=== PATIENT | male | born 1955 | race Caucasian/White ===

== ENCOUNTER → 2018-11-28 | Outpatient (CLI) | payer BC | END | disposition home or self-care (01) | LOC: LABWHC1 10:09 | PROVIDERS: ATTEND Urology | DX: C61 Malignant neoplasm of prostate (principal) | CPT/HCPCS: 36415; 84153 ==

== ENCOUNTER → 2019-12-08 | Outpatient (CLI) | payer BC | END | disposition home or self-care (01) | LOC: LABWHC1 07:24 | PROVIDERS: ATTEND Urology | DX: C61 Malignant neoplasm of prostate (principal) | CPT/HCPCS: 36415; 84153 ==

== ENCOUNTER → 2021-01-02 | Outpatient (CLI) | payer BC | END | disposition home or self-care (01) | LOC: LABWHC1 07:50 | PROVIDERS: ATTEND Urology | DX: R97.20 Elevated prostate specific antigen [PSA] (principal) | CPT/HCPCS: 36415; 84153 ==

== ENCOUNTER 2021-10-20 04:02 | Inpatient (IN) | payer BC ==
[~2021-10-20 04:02] MED LIST: HEPARIN SOD,PORK IN 0.45% NACL PMX 25,000 UNIT/250 ML BAG IV ONE; IV FLUID CONTINUATION 500 ML IV ONE; LABETALOL 5 MG/ML VIAL MDV ONE; LORazepam 2 MG/ML INJ IV PRN; NITROGLYCERIN SL TABS 0.4 MG TAB SUBLINGUAL ONE; SODIUM CHLORIDE 0.9% 1,000 ML BAG ONE; SODIUM CHLORIDE 0.9% 500 ML 500 ML IV ONE
[2021-10-20] MEDS ORDERED: MIDAZOLAM 2 MG/2 ML VIAL IV ONE (04:45)
[2021-10-20] MEDS ORDERED: LIDOCAINE 1% INJ 10MG/ML (30 ML VIAL-PF) SQ ONE (04:47)
[2021-10-20] MEDS: fentaNYL (PF) 50 MCG/ML 2 ML AMP IV ONE ×2 (04:48→05:38)
[2021-10-20] MEDS ORDERED: TIROFIBAN BOLUS 12.5MG/250 ML BAG IV ONE (05:03)
[2021-10-20] MEDS ORDERED: TIROFIBAN 12.5MG-250ML NS 250 ML IV ONE (05:03)
[2021-10-20] MEDS ORDERED: LIDOCAINE 1% PF 10 MG/ML (5 ML AMP) IV ONE (05:09)
[2021-10-20] MEDS ORDERED: HYDROmorphone 0.5 MG/0.5 ML SYRINGE IVP ONE (05:13)
[2021-10-20] MEDS ORDERED: niCARdipine Syringe (1,000 mcg/10 mL) INTRACORON ONE (05:17)
[2021-10-20] MEDS ORDERED: IOPAMIDOL-370 100ML BTL INJ ONE ×3 (05:18→05:40)
[2021-10-20] MEDS ORDERED: CLOPIDOGREL 75 MG TAB PO ONE (05:27)
[2021-10-20] MEDS ORDERED: NITROGLYCERIN 1000MCG/10ML SYRINGE INTRACORON ONE (05:27)
[2021-10-20] MEDS ORDERED: ATORVASTATIN 80 MG TAB PO STA (06:20)
[2021-10-20] MEDS ORDERED: ONDANSETRON 4 MG/2 ML VIAL IVP PRN ×2 (06:20→07:13)
[2021-10-20] MEDS: SODIUM CHLORIDE 0.9% 1,000 ML IV SCH ×2 (06:43→20:40)
[2021-10-20] MEDS: TIROFIBAN 12.5MG-250ML NS 250 ML IV SCH ×2 (06:44→16:44)
[2021-10-20 06:49] LABS: Basophils # (A) 0.1 k/uL (0-0.2); Basophils % (A) 2 %; Eosinophils # (A) 0.2 k/uL (0-0.7); Eosinophils % (A) 3 %; HCT 45.7 % (39.0-53.0); HGB 15.4 gm/dL (13.0-17.5); Lymphocytes # (A) 2.4 k/uL (1.0-4.8); Lymphocytes % (A) 35 %; MCH 29.1 pg (25.0-35.0); MCHC 33.7 g/dL (31.0-37.0); MCV 86.5 fL (80.0-100.0); Mean Platelet Volume 7.7; Monocytes # (A) 0.3 k/uL (0-1.0); Monocytes % (A) 5 %; Neutrophils # (A) 3.5 k/uL (1.3-7.7); Neutrophils % (A) 53 %; Platelet Count 254 k/uL (150-450); RBC 5.28 m/uL (4.30-5.90); RDW 12.5 % (11.5-15.5); WBC 6.7 k/uL (3.8-10.6)
[2021-10-20 06:50] LABS: INR 0.9 (<1.2); Partial Thromboplastin Time 21.9 sec (22.0-30.0); Prothrombin Time 9.7 sec (9.0-12.0)
[2021-10-20 06:51] LABS: Creatine Kinase MB 3.7 ng/mL (0.0-2.4)
[2021-10-20 06:53] LABS: Troponin I 0.083 ng/mL (0.000-0.034)
[2021-10-20 06:55] LABS: Albumin 4.5 g/dL (3.5-5.0); Magnesium 2.1 mg/dL (1.6-2.3); Phosphorus 3.1 mg/dL (2.5-4.5); Potassium 4.1 mmol/L (3.5-5.1); Total Bilirubin 0.3 mg/dL (0.2-1.3); Total Protein 7.6 g/dL (6.3-8.2)
[2021-10-20] MEDS ORDERED: LORazepam 2 MG/ML INJ IV PRN (07:12)
--- NOTE | 2021-10-20 07:25 | XR ---
EXAMINATION TYPE: XR chest 1V DATE OF EXAM: 10/20/2021 CLINICAL HISTORY: Chest pain. Abnormal EKG. TECHNIQUE: Single AP portable frontal upright view of the chest is obtained. COMPARISON: None FINDINGS: There is some chronic parenchymal changes bilaterally without suspicious focal air space o pacity, pleural effusion, or pneumothorax seen. The cardiac silhouette size is upper limits of jarred l. The osseous structures are intact. Overlying EKG leads are present. IMPRESSION: No acute process.
--- NOTE | 2021-10-20 07:26 | XR ---
EXAMINATION TYPE: XR chest 1V portable DATE OF EXAM: 10/20/2021 CLINICAL HISTORY: Chest pain. Post coronary stent placement.. TECHNIQUE: Single AP portable semiupright view of the chest is obtained. COMPARISON: Chest x-ray from earlier today FINDINGS: There is new coronary stent in the left circumflex distribution along superior left heart border. Persistent chronic parenchymal changes without suspicious new focal airspace opacity, pleural effusion, or pneumothorax seen bilaterally. Cardiac silhouette size stable and upper limits of jarred l. Osseous structures are intact. IMPRESSION: New coronary stent. No new suspicious acute pulmonary process.
[2021-10-20] MEDS: METOPROLOL TARTRATE 12.5 MG TAB PO SCH ×2 (08:45→20:40)
[2021-10-20] MEDS ORDERED: LOSARTAN 25 MG TAB PO STA (10:42)
--- NOTE | 2021-10-20 11:40 | CONS ---
CONSULTATION Mr. Trammell is a 66-year-old gentleman with a history of prostate cancer about 10 years ago. He has a strong family history of premature CAD. He has no other risk factors, does not take any medications. Over the weekend he had two episodes of chest tightness and pressure randomly. He kind of dismissed them, and this morning he had severe pain starting at about 3:00 in the morning. He came into the hospital, was found to have a significant ST elevation involving the anterior leads, and he was promptly taken to the cardiac electroplating laborer. I evaluated him in the lab. He was having a pain of 8/10, was hemodynamically stable. Physical exam revealed a blood pressure of 150/70. Pulse rate was about 86 per minute. There was no JVD. No carotid bruit. S1-S2 were heard normally. No significant rub, murmur or gallop. Lungs were clear. Abdomen was soft. Lower extremities revealed diminished pulses. Radial pulses were somewhat weak. Central nervous system grossly within normal limits. IMPRESSION: 1. Acute anterior ST-elevation myocardial infarction. 2. History of prostate cancer 10 years ago. 3. Strong family history of premature coronary artery disease. RECOMMENDATIONS: I recommended cardiac catheterization and PCI and proceeded to perform this in the same setting expeditiously. MMODL / IJN: [id number] /
--- NOTE | 2021-10-20 11:40 | CC ---
CARDIAC CATHETERIZATION REPORT DATE OF SERVICE: 10/20/2021 PROCEDURE: 1. Left heart catheterization and coronary angiography. 2. Percutaneous transluminal coronary angioplasty and stenting of totally occluded mid left anterior descending artery in the setting of an anterior ST-elevation myocardial infarction with reperfusion accomplished in 64 minutes. PERFORMED BY: Dr. Carole Najera. Moderate conscious sedation time was 51 minutes. CLINICAL INFORMATION: Mr. Quan Trammell is a 66-year-old gentleman with a strong family history of CAD, history of prostate carcinoma 10 years ago. He has NO ALLERGIES and is on no medications. He came into the hospital with chest pain and had anterior ST elevation, was promptly taken to the biology laboratory assistant. Risks, benefits, options, rationale regarding cardiac cath and PCI were explained. The patient understood all details and wished to proceed with the procedure. PROCEDURE NOTE: I tried to get access from the right radial, but the radial pulses were poor. I switched over to the femoral approach. Under strict aseptic precautions and local anesthesia, a 6-Honduran introducer was placed in the right femoral artery. I started with a JL4 guide catheter and cannulated the left coronary artery and noted that the LAD was totally occluded in the mid portion after a diagonal branch. I went ahead and performed intervention of the LAD and then performed coronary angiography of the right system and also checked LV pressures. Following the procedure, the sheath was taken out and Angio-Seal device used to secure hemostasis and he was sent to the room in stable condition. Excellent angiographic result was achieved. CARDIAC CATHETERIZATION FINDINGS: The left ventricular end-diastolic pressure was about 16 mmHg without any gradient across the aortic valve. CORONARY ANGIOGRAPHY FINDINGS: RIGHT CORONARY ARTERY: This is a large dominant vessel. No significant disease. Distally bifurcates into large PDA and PLV, both of which have minor irregularities. No significant disease. LEFT MAIN CORONARY ARTERY: Short, patent, disease-free vessel that bifurcates into LAD and circumflex. LEFT ANTERIOR DESCENDING CORONARY ARTERY: This is totally occluded after diagonal branch and is seen as a stump without any antegrade flow and is the culprit lesion. LEFT POSTERIOR CIRCUMFLEX CORONARY ARTERY: This is a nondominant vessel, large in caliber and distribution. Supplies a sizable amount of myocardium. No significant disease. LEFT VENTRICULOGRAM: Left ventriculogram was not performed. FINAL IMPRESSION: This patient presented with acute anterior ST-elevation NV, has a total occlusion of LAD, which is the culprit vessel. Dominant RCA and nondominant circumflex are free of significant disease. Filling pressures are mildly elevated and there is no gradient across aortic valve. RECOMMENDATIONS: I recommended PCI of LAD that was performed expeditiously. PERCUTANEOUS CORONARY INTERVENTION PROCEDURE DETAILS: I used a JL4 guide catheter to cannulate the left coronary artery and a run-through wire to cross the lesion. I used a 12 mm long 3.0 caliber Trek balloon to pre-dilate the lesion. I then deployed a 23 mm long 3.5 caliber Xience stent at 13 atmospheres. I noted that there was haziness distal to the stented segment. Distal to the a 23 mm long stent, I deployed another 12 mm 3.5 caliber Xience stent at 13 atmospheres. Excellent angiographic result was achieved. Patient had total resolution of chest pain. However, the ST-segment elevation persisted. He has had substantial thrombus burden. I also started him on an Aggrastat bolus and drip. He received 180 mg of Brilinta. ACT was 235. Excellent angiographic result without complication was achieved. The sheath was taken out and Angio-Seal device used to secure hemostasis and he was sent to the room in stable condition. Results were discussed with the patient and his . MMODL / IJN: [id number] /
--- NOTE | 2021-10-20 11:59 | P.HPIM ---
History of Present Illness H&P Date: 10/20/21 Chief Complaint: Chest pain Patient is a 66-year-old male with a known history of prostate cancer status post surgery, patient is to smoking, daily alcohol use 16-18 beers per week., Presents to ER with complaints of chest pain. Patient states that he was moving lawn on Wednesday and suddenly started having left retrosternal chest pain. He took rest for about 10 minutes and pain resolved. And again on Wednesday patient started going for a bike ride and the lower chest pain again and he could not go to bike ride at the time, rather he went for a walk..again around 3-4 AM last night he started having chest pain which made him come to ER. Patient denied any radiation of the pain. No sensation nausea vomiting or dizziness or lightheadedness. Minimal shortness of breath. Denied any leg swelling. No exertional dyspnea recently. Patient was found have ST elevated [place] with ST-T wave changes in the anterior leads and was immediately cardiac catheterization. Laboratory data showed WBC 6.7 hemoglobin 15.4 and platelets 254 Sodium 137 potassium 4.1 (bicarb is 20 BUN 20 and creatinine 1.14 and blood sugar is 162. Troponin 0.083, 190, 212 ProBNP is 69 Review of Systems Constitutional: Patient denies any fever or chills . No generalized weakness or weight loss. Abdomen: Patient denied nausea vomiting and diarrhea and abdominal pain. Cardiovascular: Patient did have chest pain. No short of breath no palpitations . Respiratory: patient denied any cough is from production. No shortness of breath Neurologic: Patient denied any numbness or tingling headache. Musculoskeletal: Patient denies any complaints of joint swelling or deformity. Skin: Negative Psychiatric: Negative Endocrine: No heat or cold intolerance. No recent weight gain. Genitourinary: No dysuria or hematuria. All other 14 point ROS negative except the above Past Medical History Past Medical History: Cancer Additional Past Medical History / Comment(s): prostate CA History of Any Multi-Drug Resistant Organisms: None Reported Past Surgical History: Prostate Surgery Past Anesthesia/Blood Transfusion Reactions: No Reported Reaction Past Psychological History: No Psychological Hx Reported Smoking Status: Former smoker - Past Family History Father Family Medical History: Unable to Obtain Mother Family Medical History: Unable to Obtain Medications and Allergies Home Medications Medication Instructions Recorded Confirmed Type No Known Home Medications 10/20/21 10/20/21 History Allergies Allergy/AdvReac Type Severity Reaction Status Date / Time No Known Allergies Allergy Verified 10/20/21 07:34 Physical Exam Vitals: Vital Signs Temp Pulse Resp BP Pulse Ox 10/20/21 09:00 70 14 139/99 95 10/20/21 08:00 98.5 F 67 21 144/112 95 10/20/21 07:00 68 14 94 L 10/20/21 06:46 63 22 139/91 93 L Intake and Output 10/19/21 10/20/21 10/20/21 22:59 06:59 14:59 Intake Total 448.5 225 Output Total 0 475 Balance 448.5 -250 Intake: IV 448.5 225 Sodium Chloride 0.9% 1, 75 225 000 ml @ 75 mls/hr IV . [id number] [facility] Rx#:[id number] Output: Urine 0 475 Other: Voiding Method Urinal Weight 97.4 kg PHYSICAL EXAMINATION: Patient is lying in the bed comfortably, no acute distress, awake alert and oriented.. HEENT: Normocephalic. Neck is supple. Pupils reactive. Nostrils clear. Oral cavity is moist. Neck reveals no JVD, carotid bruits, or thyromegaly. CHEST EXAMINATION: Trachea is central. Symmetrical expansion. Lung vasquez clear to auscultation and percussion. CARDIAC: Normal S1, S2 with no gallops. No murmurs ABDOMEN: Soft. Bowel sounds normal. No organomegaly. No abdominal bruits. Extremities: reveal no edema. No clubbing or cyanosis Neurologically awake, alert, oriented x3 with well-coordinated movements. No focal deficits noted Skin: No rash or skin lesions. Psychiatric: Coperative. Nonsuicidal Musculoskeletal: No joint swelling or deformity. Normal range of motion. Results CBC & Chem 7: 10/20/21 04:10 10/20/21 04:10 Labs: Abnormal Lab Results - Last 24 Hours (Table) 10/20/21 10/20/21 10/20/21 Range/Units 04:10 04:10 04:10 APTT 21.9 L (22.0-30.0) sec BUN 23 H (9-20) mg/dL Glucose 162 H (74-99) mg/dL ALT 57 H (4-49) U/L CK-MB (CK-2) 3.7 H (0.0-2.4) ng/mL Troponin I 0.083 H* (0.000-0.034) ng/mL 10/20/21 Range/Units 07:43 APTT (22.0-30.0) sec BUN (9-20) mg/dL Glucose (74-99) mg/dL ALT (4-49) U/L CK-MB (CK-2) (0.0-2.4) ng/mL Troponin I 190.000 H* (0.000-0.034) ng/mL Thrombosis Risk Factor Assmnt - DVT/VTE Prophylaxis DVT/VTE Prophylaxis: Pharmacologic Prophylaxis ordered - Choose All That Apply Any of the Below Risk Factors Present?: Yes Each Factor Represents 1 point: Acute [place] Other Risk Factors: Yes Each Risk Factor Represents 2 Points: Age 61-74 years Other congenital or acquired thrombophilia - If yes, enter type in comment: No Thrombosis Risk Factor Assessment Total Risk Factor Score: 3 Thrombosis Risk Factor Assessment Level: Moderate Risk Assessment and Plan Assessment: Acute ST elevated [place] involving the anterior wall History of prostate cancer status post surgery 10 years ago Family history of coronary artery disease in his father Previous history of smoking Daily alcohol use. Does drink 16-18 beats per week. Hypertension DVT prophylaxis Plan: Patient is status post cardiac catheterization and stent placement to LAD. Continue with telemetry monitoring. Continue with aspirin, Plavix and statins and metoprolol. Also started on losartan. Follow-up echocardiogram. C ardiology is on board. Continue to follow closely. Time with Patient: Greater than 30
[2021-10-20] MEDS: amLODIPine 5 MG TAB PO SCH (16:07)
[2021-10-20] MEDS: ATORVASTATIN 80 MG TAB PO SCH (20:40)
[2021-10-20] MEDS: LOSARTAN 25 MG TAB PO SCH (20:40)
[2021-10-21 07:47] LABS: African American GFR (CKD) >90 (>60 ml/min/1.73 sqM); Anion Gap 8 mmol/L; Blood Urea Nitrogen 11 mg/dL (9-20); Calcium 8.6 mg/dL (8.4-10.2); Carbon Dioxide 25 mmol/L (22-30); Chloride 105 mmol/L (98-107); Glucose 144 mg/dL (74-99); Non-African American GFR(CKD) 89 (>60 ml/min/1.73 sqM); Potassium 4.1 mmol/L (3.5-5.1); Sodium 138 mmol/L (137-145)
[2021-10-21] MEDS: CLOPIDOGREL 75 MG TAB PO SCH (07:58)
[2021-10-21] MEDS: ASPIRIN 81 MG PO SCH (07:58)
[2021-10-21] MEDS: METOPROLOL TARTRATE 12.5 MG TAB PO SCH ×2 (07:58→20:04)
[2021-10-21] MEDS: amLODIPine 5 MG TAB PO SCH (07:58)
--- NOTE | 2021-10-21 12:06 | P.PN ---
Subjective Progress Note Date: 10/21/21 This is 66-year-old gentleman was admitted with myocardial infarction and had stent placement. Patient has been stable since yesterday. His blood pressure was running high. He was put on amlodipine 5 mg along with Cozaar 25 and metoprolol. His blood pressure is 130/80 to 90. Today his heart rate is co ntrolled, denies any chest pain, shortness of breath, dizziness or syncope. He groin remains soft. Lungs are clear. Heart is regular. No JVD or peripheral edema. He'll continue current medical therapy. He had an echocardiogram and we are waiting for the report. He will be transferred to telemetry unit and increase activity as tolerated. Further recommendations depend upon clinical course Objective - Vital Signs Vital signs: Vital Signs Temp 98.7 F 10/21/21 07:56 Pulse 69 10/21/21 10:00 Resp 28 H 10/21/21 10:00 BP 130/88 10/21/21 10:00 Pulse Ox 94 L 10/21/21 10:00 FiO2 Intake & Output 10/20/21 10/21/21 10/21/21 18:59 06:59 18:59 Intake Total 900 900 150 Output Total 475 Balance 425 900 150 Weight 96.6 kg Intake: IV 900 900 150 Sodium Chloride 0.9% 1, 900 900 150 000 ml @ 75 mls/hr IV . [id number] [facility] Rx#:[id number] Output: Urine 475 Other: Voiding Method Urinal Urinal Urinal # Voids 1 1 1 - Exam GENERAL EXAM: Patient is alert and oriented and doesn't appear to be in any acute distress HEENT: Normocephalic. Normal reaction of pupils, equal size, normal range of extraocular motion. No erythema or exudates in the throat. NECK: No masses, no nuchal rigidity. CHEST: No chest wall deformity. LUNGS: Equal air entry with no crackles or wheeze. HEART: S1 and S2 normal with no audible mumurs or gallops. Regular rhythm, femorals equal on both sides.. ABDOMEN: No hepatosplenomegaly, normal bowel sounds, no guarding or rigidity. SKIN: No rashes CENTRAL NERVOUS SYSTEM: No focal deficits. EXTREMITIES: No cyanosis, clubbing or edema. - Labs CBC & Chem 7: 10/20/21 04:10 10/21/21 07:06 Labs: Abnormal Lab Results - Last 24 Hours (Table) 10/21/21 Range/Units 07:06 Glucose 144 H (74-99) mg/dL Assessment and Plan (1) Essential hypertension Current Visit: Yes Status: Acute Code(s): I10 - ESSENTIAL (PRIMARY) HYPERTENSION SNOMED Code(s): 53575916 (2) STEMI (ST elevation myocardial infarction) Current Visit: Yes Status: Acute Code(s): I21.3 - ST ELEVATION (STEMI) MYOCARDIAL INFARCTION OF [facility] SITE SNOMED Code(s): 87400967 Plan: Status post myocardial infarctions, stent placement. His troponin went up to 120. Patient is clinically stable without any arrhythmia or evidence of CHF. Echo findings are pending. Patient will be transferred to telemetry unit. Increase activity as tolerated
--- NOTE | 2021-10-21 12:27 | P.PN ---
Subjective Patient is a 66-year-old male with a known history of prostate cancer status post surgery, patient is to smoking, daily alcohol use 16-18 beers per week., Presents to ER with complaints of chest pain. Patient states that he was moving lawn on Wednesday and suddenly started having left retrosternal chest pain. He took rest for about 10 minutes and pain resolved. And again on Wednesday patient started going for a bike ride and the lower chest pain again and he could not go to bike ride at the time, rather he went for a walk..again around 3-4 AM last night he started having chest pain which made him come to ER. Patient denied any radiation of the pain. No sensation nausea vomiting or dizziness or lightheadedness. Minimal shortness of breath. Denied any leg swelling. No exertional dyspnea recently. Patient was found have ST elevated [place] with ST-T wave changes in the anterior leads and was immediately cardiac catheterization. Laboratory data showed WBC 6.7 hemoglobin 15.4 and platelets 254 Sodium 137 potassium 4.1 (bicarb is 20 BUN 20 and creatinine 1.14 and blood sugar is 162. Troponin 0.083, 190, 212 ProBNP is 69 10/21/2021 patient clinically doing well, he was seen in the ICU room 254, his denied any chest pain or dyspnea. He is status post stent placement to the LAD. Echocardiogram is done today and results pending. Hemodynamically stable, he is slightly tachypneic , however is not hypoxic and saturation 94-95% room air. Chest x-ray from yesterday showed no acute Pulmonary process. He has a new coronary stent. He remains on gentle hydration. He was started on aspirin and Plavix and statin. Objective - Vital Signs Vital signs: Vital Signs Temp 98.7 F 10/21/21 07:56 Pulse 69 10/21/21 10:00 Resp 28 H 10/21/21 10:00 BP 130/88 10/21/21 10:00 Pulse Ox 94 L 10/21/21 10:00 FiO2 Intake & Output 10/20/21 10/21/21 10/21/21 18:59 06:59 18:59 Intake Total 900 900 150 Output Total 475 Balance 425 900 150 Weight 96.6 kg Intake: IV 900 900 150 Sodium Chloride 0.9% 1, 900 900 150 000 ml @ 75 mls/hr IV . [id number] [facility] Rx#:[id number] Output: Urine 475 Other: Voiding Method Urinal Urinal Urinal # Voids 1 1 1 - Exam GENERAL: The patient is alert and oriented x3, not in any acute distress. Well developed, well nourished. HEENT: Pupils are round and equally reacting to light. EOMI. No scleral icterus. No conjunctival pallor. Normocephalic, atraumatic. No pharyngeal erythema. No thyromegaly. CARDIOVASCULAR: S1 and S2 present. No murmurs, rubs, or gallops. PULMONARY: Chest is clear to auscultation, no wheezing or crackles. ABDOMEN: Soft, nontender, nondistended, normoactive bowel sounds. No palpable organomegaly. MUSCULOSKELETAL: No joint swelling or deformity. EXTREMITIES: No cyanosis, clubbing, or pedal edema. NEUROLOGICAL: Gross neurological examination did not reveal any focal deficits. SKIN: No rashes. no petechiae. - Labs CBC & Chem 7: 10/20/21 04:10 10/21/21 07:06 Labs: Abnormal Lab Results - Last 24 Hours (Table) 10/21/21 Range/Units 07:06 Glucose 144 H (74-99) mg/dL Assessment and Plan Assessment: Acute ST elevated [place] involving the anterior wall History of prostate cancer status post surgery 10 years ago Family history of coronary artery disease in his father Previous history of smoking Daily alcohol use. Does drink 16-18 beats per week. Hypertension Plan: This is a pleasant 66 years old male who presents with STEMI status post PCI to LAD. Continue with aspirin and Plavix Cardiology consult is following the case. Follow-up echocardiogram. Labs and medication were reviewed.. Continue same treatment. Continue with symptomatic treatment. Resume home medication. Monitor lytes and vitals. DVT and GI prophylaxis. Further recommendationsas per clinical course of the patient DVT prophylaxis: Subcutaneous heparin GI Prophylaxis: Pepcid
--- NOTE | 2021-10-21 19:26 | CA ---
Transthoracic Echo Report Name: Quan Trammell Age: 66 Gender: M : 1955 Exam Date: 10/21/2021 08:57 Exam Location: [place] [facility] Ht (in): 70 Wt (lb): 214 Ordering Physician: Fouzia Najera MD ([id number]) Attending/Referring Phys: Railroad Hand Pina Rivas RDCS Procedure CPT: Indications: heart cath with stents Cardiac Hx: Technical Quality: Technically difficult study Contrast 1: Lumason Total Dose (mL): 3 Contrast 2: Total Dose (mL): MEASUREMENTS (Male / Female) Normal Values 2D ECHO LV Diastolic Diameter PLAX 4.0 cm 4.2 - 5.9 / 3.9 - 5.3 cm LV Systolic Diameter PLAX 2.3 cm IVS Diastolic Thickness 1.6 cm 0.6 - 1.0 / 0.6 - 0.9 cm LVPW Diastolic Thickness 1.5 cm 0.6 - 1.0 / 0.6 - 0.9 cm LV Relative Wall Thickness 0.8 RV Internal Dim ED PLAX 3.8 cm LA Volume 76.3 cm??? 18 - 58 / 22 - 52 cm??? M-MODE Aortic Root Diameter MM 3.4 cm LA Systolic Diameter MM 4.4 cm LA Ao Ratio MM 1.3 AV Cusp Separation MM 1.9 cm DOPPLER AV Peak Velocity 159.9 cm/s AV Peak Gradient 10.2 mmHg LVOT Peak Velocity 138.3 cm/s LVOT Peak Gradient 7.7 mmHg MV Area PHT 4.3 cm??? Mitral E Point Velocity 90.0 cm/s Mitral A Point Velocity 123.1 cm/s Mitral E to A Ratio 0.7 MV Deceleration Time 175.5 ms MV E' Velocity 6.0 cm/s Mitral E to MV E' Ratio 15.0 TR Peak Velocity 315.0 cm/s TR Peak Gradient 39.7 mmHg FINDINGS Left Ventricle Left ventricular cavity size normal. Moderately increased left ventricular wall thickness. Left ventricular ejection fraction is estimated at 40 %. [place] hypokinetic. Apical septal, apical inferior and apical anterior nicholas hypokinetic. Right Ventricle Mild Right ventricular dilatation. Mild pulmonary hypertension. Right Atrium Normal right atrial size. Left Atrium Moderately increased left atrial volume. No evidence for an atrial septal defect. Mitral Valve [id number] mitral regurgitation. Aortic Valve Trileaflet aortic valve. No aortic valve stenosis or regurgitation. Tricuspid Valve Mild tricuspid regurgitation. Pulmonic Valve Trace pulmonic regurgitation. Pericardium No pericardial effusion. Aorta Normal size aortic root and proximal ascending aorta. CONCLUSIONS Reduced LV systolic function with severe septal hypokinesis Apical hypokinesis Left ventricular ejection fraction 40 % Previewed by: Dr. Willi Baird MD (Electronically Signed) Final Date: 21 Oct 2021 19:25
[2021-10-21] MEDS: LOSARTAN 25 MG TAB PO SCH (20:05)
[2021-10-21] MEDS: HEPARIN SODIUM,PORCINE/PF 5,000 UNIT/0.5 ML SYRINGE SQ SCH (20:05)
[2021-10-21] MEDS: FAMOTIDINE 20 MG/2 ML VIAL IV SCH (20:05)
[2021-10-21] MEDS: ATORVASTATIN 80 MG TAB PO SCH (20:06)
[2021-10-22] MEDS: HEPARIN SODIUM,PORCINE/PF 5,000 UNIT/0.5 ML SYRINGE SQ SCH (08:02)
[2021-10-22] MEDS: FAMOTIDINE 20 MG/2 ML VIAL IV SCH (08:02)
[2021-10-22] MEDS: amLODIPine 5 MG TAB PO SCH (08:03)
[2021-10-22] MEDS: CLOPIDOGREL 75 MG TAB PO SCH (08:03)
[2021-10-22] MEDS: ASPIRIN 81 MG PO SCH (08:03)
[2021-10-22] MEDS: METOPROLOL TARTRATE 12.5 MG TAB PO SCH (08:03)
[2021-10-22 09:19] VITALS: RESP 14
--- NOTE | 2021-10-22 10:06 | P.PN ---
Subjective Progress Note Date: 10/22/21 This is 66-year-old gentleman was admitted with myocardial infarction and had stent placement. Patient has been stable since yesterday. His blood pressure was running high. He was put on amlodipine 5 mg along with Cozaar 25 and metoprolol. His blood pressure is 130/80 to 90. Today his heart rate is co ntrolled, denies any chest pain, shortness of breath, dizziness or syncope. He groin remains soft. Lungs are clear. Heart is regular. No JVD or peripheral edema. He'll continue current medical therapy. He had an echocardiogram and we are waiting for the report. He will be transferred to telemetry unit and increase activity as tolerated. Further recommendations depend upon clinical course. 10/22/2021: This patient is admitted with anterior wall myocardial infarction and had stent placement of the LAD. However, patient did not have resolution of the ST segments. His echo Cardigan showed an ejection fraction about 40% with anteroapical hypokinesia. No significant valvular abnormalities are noted. Patient is clinically stable. No complaints of any chest pain or shortness of breath. No arrhythmias. Lungs are clear. Heart is regular. No JVD. Patient seemed to be clinically stable and eager to wants to go home. Continue current medical therapy including dual antiplatelet agents lipid-lowering agents along with beta adrián, MICHELLE inhibitor. Follow-up with Dr. PAOLA Najera in one week Objective - Vital Signs Vital signs: Vital Signs Temp 98.1 F 10/22/21 08:00 Pulse 76 10/22/21 08:00 Resp 14 10/22/21 08:00 BP 112/67 10/22/21 08:00 Pulse Ox 95 10/22/21 08:00 FiO2 Intake & Output 10/21/21 10/22/21 10/22/21 18:59 06:59 18:59 Intake Total 150 Balance 150 Weight 96.8 kg Intake: IV 150 Sodium Chloride 0.9% 1, 150 000 ml @ 75 mls/hr IV . [id number] FORMERLY [facility], 1928–1983 Rx#:[id number] Other: Voiding Method Urinal Toilet Toilet # Voids 1 1 - Exam GENERAL EXAM: Patient is alert and oriented and doesn't appear to be in any acute distress HEENT: Normocephalic. Normal reaction of pupils, equal size, normal range of extraocular motion. No erythema or exudates in the throat. NECK: No masses, no nuchal rigidity. CHEST: No chest wall deformity. LUNGS: Equal air entry with no crackles or wheeze. HEART: S1 and S2 normal with no audible mumurs or gallops. Regular rhythm, femorals equal on both sides.. ABDOMEN: No hepatosplenomegaly, normal bowel sounds, no guarding or rigidity. SKIN: No rashes CENTRAL NERVOUS SYSTEM: No focal deficits. EXTREMITIES: No cyanosis, clubbing or edema. - Labs CBC & Chem 7: 10/20/21 04:10 10/21/21 07:06 Assessment and Plan (1) Essential hypertension Current Visit: Yes Status: Acute Code(s): I10 - ESSENTIAL (PRIMARY) HYPERTENSION SNOMED Code(s): 47809138 (2) STEMI (ST elevation myocardial infarction) Current Visit: Yes Status: Acute Code(s): I21.3 - ST ELEVATION (STEMI) MYOCARDIAL INFARCTION OF [facility] SITE SNOMED Code(s): 00775141 (3) Ischemic cardiomyopathy Current Visit: Yes Status: Acute Code(s): I25.5 - ISCHEMIC CARDIOMYOPATHY SNOMED Code(s): 928480377 Plan: Patient is clinically stable. Echo Cardigan showed an ejection fraction of 40%. Patient is free of angina or CHF. No arrhythmias noted. Tolerating activity and eager to go home. Patient will have follow-up with Dr. PAOLA Najera
[2021-10-22 12:22] VITALS: BP 118/90; PULSE 75; TEMP 98.3
--- NOTE | 2021-10-23 00:22 | P.DS ---
Providers Date of admission: 10/20/21 04:03 Attending physician: Harley Denise Consults: 10/20/21 04:00 Consult Physician Routine Consulting Provider: Josafat Li Consult Reason/Comments: STEMI Do you want consulting provider notified?: Already Contacted Primary care physician: Stated None Hospital Course: Diagnoses: cute ST elevated OH involving the anterior wall History of prostate cancer status post surgery 10 years ago Family history of coronary artery disease in his father Previous history of smoking Daily alcohol use. Does drink 16-18 beats per week. Hypertension Hospital course: Patient is a 66-year-old male with a known history of prostate cancer status post surgery, patient is to smoking, daily alcohol use 16-18 beers per week., Presents to ER with complaints of chest pain. Patient states that he was moving lawn on Wednesday and suddenly started having left retrosternal chest pain. Patient found to have STEMI, he underwent PCI to LAD by staff nurse midwife. Patient was started on metoprolol, Plavix and aspirin and the importance of aggressive therapy explained for him. On the day of discharge he was fully awake and oriented and asymptomatic. Denies chest pain or dyspnea. No change in urine or bowel habits. No fever. Patient was eager to go home today. Patient was cleared for discharge by Windows Migration Technician. Problems and management plan were discussed with the patient and he verbalized understanding and acceptance Patient was found stable and can be discharged home however he needs follow-up as an outpatient. Patient was instructed to follow up with PCP within one week and patient agrees Patient was instructed to call his insurance provider to find PCP in one week and call and make appointment and he agrees Patient was informed to follow up with his staff nurse midwife Dr. Li in one week and he agrees. Physical exam Gen: patient is a AAOx3, no distress CVS: S1-S2, RRR, no murmur Lungs: B/L CTA, no wheezing Abdomen: soft, no distention, no tenderness, positive bowel sounds Extremity: no leg edema or induration Time spent more than 35 minutes Patient Condition at Discharge: Good Plan - Discharge Summary Discharge Rx Participant: No New Discharge Prescriptions: New Aspirin 81 mg PO DAILY #30 tab Losartan [Cozaar] 25 mg PO HS #30 tab Atorvastatin [Lipitor] 80 mg PO HS #30 tab Famotidine [Pepcid] 20 mg PO DAILY 7 Days #7 tablet Metoprolol Tartrate [Lopressor] 12.5 mg PO BID #60 tab amLODIPine [Norvasc] 5 mg PO DAILY #30 tab Clopidogrel [Plavix] 75 mg PO DAILY #30 tab Discharge Medication List Aspirin 81 mg PO DAILY #30 tab 10/22/21 [Rx] Atorvastatin [Lipitor] 80 mg PO HS #30 tab 10/22/21 [Rx] Clopidogrel [Plavix] 75 mg PO DAILY #30 tab 10/22/21 [Rx] Famotidine [Pepcid] 20 mg PO DAILY 7 Days #7 tablet 10/22/21 [Rx] Losartan [Cozaar] 25 mg PO HS #30 tab 10/22/21 [Rx] Metoprolol Tartrate [Lopressor] 12.5 mg PO BID #60 tab 10/22/21 [Rx] amLODIPine [Norvasc] 5 mg PO DAILY #30 tab 10/22/21 [Rx] Follow up Appointment(s)/Referral(s): Josafat Li MD [STAFF PHYSICIAN] - 1 Week ([facility] will call patient to set up an appointment for 1 week ) Patient Instructions/Handouts: Heart Attack (DC) Activity/Diet/Wound Care/Special Instructions: Heart healthy diet Activity is restricted until you see your doctor We recommend to call your health insurance provider to find nearby primary care doctor, please call to make an appointment within 1 week Discharge Disposition: HOME SELF-CARE
== END 2021-10-22 12:21 | disposition home or self-care (01) | DRG 247 ==
LOC: EC 04:02 → 2SICU 04:03
PROVIDERS: ADMIT Hospitalist; ATTEND Hospitalist
PROC: B2111ZZ Fluoroscopy of Multiple Coronary Arteries using Low Osmolar Contrast (ICD-10-PCS; 2021-10-20)
PROC: 027034Z Dilation of Coronary Artery, One Artery with Drug-eluting Intraluminal Device, Percutaneous Approach (ICD-10-PCS; principal; 2021-10-20 04:30)
PROC: 4A023N7 Measurement of Cardiac Sampling and Pressure, Left Heart, Percutaneous Approach (ICD-10-PCS; 2021-10-20 04:30)
DX: I21.09 ST elevation (STEMI) myocardial infarction involving other coronary artery of anterior wall (principal); I25.10 Atherosclerotic heart disease of native coronary artery without angina pectoris; I25.5 Ischemic cardiomyopathy; I10 Essential (primary) hypertension; I25.2 Old myocardial infarction; Z85.46 Personal history of malignant neoplasm of prostate; Z87.891 Personal history of nicotine dependence; Z98.890 Other specified postprocedural states; Z82.49 Family history of ischemic heart disease and other diseases of the circulatory system
CPT/HCPCS: 71045; 80048; 80053; 82550; 82553; 83690; 83735; 83880; 84100; 84484; 85025; 85610; 85730; 93306; 93458; 96365; 96366; 96375; 96376; 99285

== ENCOUNTER → 2022-01-08 | Outpatient (CLI) | payer BC | END | disposition home or self-care (01) | LOC: LABWHC1 08:14 | PROVIDERS: ATTEND Urology | DX: C61 Malignant neoplasm of prostate (principal) | CPT/HCPCS: 36415; 84153 ==

== ENCOUNTER → 2022-12-31 | Outpatient (CLI) | payer MEDICARE | END | disposition home or self-care (01) | LOC: LABWHC1 12:36 | PROVIDERS: ATTEND Urology | DX: C61 Malignant neoplasm of prostate (principal) | CPT/HCPCS: 36415; 84153 ==

== ENCOUNTER → 2023-08-12 | Outpatient (CLI) | payer MEDICARE ==
--- NOTE | 2023-08-13 04:50 | MR ---
EXAMINATION TYPE: MR shoulder LT wo con DATE OF EXAM: 08/12/2023 COMPARISON: None HISTORY: Lt shoulder pain with difficulty raising arm overhead for 6 months TECHNIQUE: Multiplanar, multisequence imaging of the left shoulder is performed without contrast. FINDINGS: Rotator Cuff: Intact supraspinatus and infraspinatus tendons. Intact subscapularis tendon. Rotator cu ff muscle bulk is preserved. Acromioclavicular Joint: Mild to moderate narrowing greatest posterior aspect. Mild/moderate capsular hypertrophy. Type II downsloping acromion. Glenohumeral Joint: Small to moderate-sized joint effusion. No significant spurring. Some thickening of the inferior glenohumeral ligament is present. Labrum: The labrum appears grossly intact given limitation of non-arthrogram study. Biceps Tendon: The long head of biceps is in normal location within bicipital groove. Bone marrow signal: No focal abnormal marrow signal is appreciated. Other: No additional significant abnormality is appreciated. IMPRESSION: No rotator cuff or labral tear is seen. Fairly moderate degenerative changes are present as detailed above. Type II downsloping acromion. Adhesive capsulitis needs to be considered.
== END | disposition home or self-care (01) ==
LOC: RADMRIMAIN 06:19
PROVIDERS: ATTEND Family Medicine
DX: M25.512 Pain in left shoulder (principal)

== ENCOUNTER → 2024-04-17 | Outpatient (CLI) | payer MEDICARE ==
[2024-04-17 10:27] LABS: ALT 34 U/L (10-49); AST 25 U/L (14-35); Chol/HDL Ratio 4.52 Ratio; Creatine Kinase 106 U/L (35-257); LDL Cholesterol,Calculated 60.9 mg/dL (0.0-131.0)
== END | disposition home or self-care (01) ==
LOC: LABWHC1 08:02
PROVIDERS: ATTEND Internal Medicine Interventional Cardiology
DX: I25.10 Atherosclerotic heart disease of native coronary artery without angina pectoris (principal); E78.2 Mixed hyperlipidemia
CPT/HCPCS: 36415; 80061; 82550; 84450; 84460